=== PATIENT | male | born 1990 | race Caucasian/White ===

== ENCOUNTER 2018-09-02 13:45 | Emergency (ER) | payer OTHER ==
[~2018-09-02] VITALS: Ht 175.3 cm; Wt 81.6 kg
[2018-09-02 14:28] VITALS: BP 131/87
== END 2018-09-02 15:17 | disposition home or self-care (01) ==
LOC: ER 13:45
DX: M25.512 Pain in left shoulder (principal); F17.210 Nicotine dependence, cigarettes, uncomplicated; F12.90 Cannabis use, unspecified, uncomplicated
CPT/HCPCS: 73030